=== PATIENT | male | born 1950 | race American Indian/Alaskan Native ===

== ENCOUNTER 2019-08-05 10:08 | Emergency (ER) | payer MEDICARE ==
[2019-08-05 10:40] VITALS: BP 127/71
[2019-08-05 11:28] LABS: Bilirubin,Urine NEG (Negative); Blood,Urine MOD (Negative); Color,Urine Yellow (Yellow); Urobilinogen,Urine < 2.0 mg/dL (<2.0)
[2019-08-05 11:29] LABS: RBC,Urine > 182.0 /HPF (0.0-6.0); WBC,Urine > 182.0 /HPF (0.0-6.0)
[2019-08-05] MEDS ORDERED: LIDOCAINE-MPF (1%) 10 MG/1 ML VIAL 5 ML INFILTRATI ONE (14:36)
--- NOTE | 2019-08-05 15:02 | Emergency Department Report ---
ED Male HPI - General Chief complaint: Urogenital-Male Stated complaint: BACK/LEG PAIN Time Seen by Provider: 08/05/19 13:57 Source: patient Mode of arrival: Wheelchair Limitations: No Limitations - History of Present Illness Initial comments: This is a 69-year-old male nontoxic, well nourished in appearance, no acute signs of distress presents to the ED with 2 complains: 1) dysuria and hematuria x1 day. Patient denies any penile discharge, bleeding, ulcers or lesions. Patient denies any flank pain. Patient denies any abdominal pain. 2) acute on chronic lower back pain. Patient denies any radiation of pain. Patient denies any trauma. Denies any bladder or bowel instability. Patient denies any other urinary symptoms. Denies any fever, chills, nausea, vomiting, headache, stiff neck, chest pain or shortness of breath. Patient denies any numbness or tingling. Denies any allergies. MD Complaint: dysuria, other (hematuria, lower back pain) -: days(s) Radiation: none Severity: mild Severity scale (0 -10): 3 Quality: aching, burning Consistency: intermittent Improves with: rest Worsens with: movement denies other symptoms, blood in urine, dysuria. denies: discharge, swelling, mass, rash, urinary retention, fever, nausea/vomiting, incontinence - Related Data Sexually active: No Previous Rx's Medication Instructions Recorded Last Taken Type Ciprofloxacin HCl [Ciprofloxacin 500 mg PO Q12HR #14 tab 08/05/19 Unknown Rx TAB] Cyclobenzaprine HCl [Flexeril 5 MG 5 mg PO QHS PRN #10 tab 08/05/19 Unknown Rx TAB] Allergies Allergy/AdvReac Type Severity Reaction Status Date / Time No Known Allergies Allergy Unverified 08/05/19 10:15 ED Review of Systems ROS: Stated complaint: BACK/LEG PAIN Other details as noted in HPI Constitutional: denies: chills, fever Eyes: denies: eye pain, eye discharge, vision change ENT: denies: ear pain, throat pain Respiratory: denies: cough, shortness of breath, wheezing Cardiovascular: denies: chest pain, palpitations Endocrine: no symptoms reported Gastrointestinal: denies: abdominal pain, nausea, diarrhea Genitourinary: dysuria, hematuria. denies: urgency, frequency, discharge, testicular pain, testicular mass Musculoskeletal: back pain. denies: joint swelling, arthralgia Skin: denies: rash, lesions Neurological: denies: headache, weakness, paresthesias Psychiatric: denies: anxiety, depression Hematological/Lymphatic: denies: easy bleeding, easy bruising ED Past Medical Hx - Past Medical History Previous Medical History?: Yes Hx Hypertension: Yes Hx Diabetes: Yes - Surgical History Past Surgical History?: Yes Additional Surgical History: Back surgery - Social History Smoking Status: Never Smoker Substance Use Type: None - Medications Home Medications: Home Medications Medication Instructions Recorded Confirmed Last Taken Type Ciprofloxacin HCl [Ciprofloxacin 500 mg PO Q12HR #14 tab 08/05/19 Unknown Rx TAB] Cyclobenzaprine HCl [Flexeril 5 MG 5 mg PO QHS PRN #10 tab 08/05/19 Unknown Rx TAB] ED Physical Exam - General Limitations: No Limitations General appearance: alert, in no apparent distress - Head Head exam: Present: atraumatic, normocephalic - Eye Eye exam: Present: normal appearance - Neck Neck exam: Present: normal inspection, full ROM. Absent: tenderness, meningismus, lymphadenopathy - Respiratory Respiratory exam: Present: normal lung sounds bilaterally. Absent: respiratory distress, wheezes, rales, rhonchi, stridor, chest wall tenderness, accessory muscle use, decreased breath sounds, prolonged expiratory - Cardiovascular Cardiovascular Exam: Present: regular rate, normal rhythm, normal heart sounds. Absent: bradycardia, tachycardia, irregular rhythm, systolic murmur, diastolic murmur, rubs, gallop - GI/Abdominal GI/Abdominal exam: Present: soft, normal bowel sounds. Absent: distended, tenderness, guarding, rebound, rigid, diminished bowel sounds - Rectal Rectal exam: Present: deferred - Extremities Exam Extremities exam: Present: normal inspection, full ROM, normal capillary refill. Absent: tenderness, joint swelling - Back Exam Back exam: Present: normal inspection, full ROM, paraspinal tenderness (lumbar paraspinal area). Absent: tenderness, CVA tenderness (R), CVA tenderness (L), muscle spasm, vertebral tenderness, rash noted - Expanded Back Exam Expanded Back exam: Absent: saddle anesthesia Back exam: Negative Straight Leg Raising: Left, Right - Neurological Exam Neurological exam: Present: alert, oriented X3, normal gait - Psychiatric Psychiatric exam: Present: normal affect, normal mood - Skin Skin exam: Present: warm, dry, intact, normal color. Absent: rash ED Course Vital Signs 08/05/19 10:18 Temperature 98.3 F Pulse Rate 84 Respiratory 18 Rate Blood Pressure 127/71 O2 Sat by Pulse 100 Oximetry - Reevaluation(s) Reevaluation #1: 08/05/19 15:02 Patient is speaking in full sentences with no signs of distress noted. ED Medical Decision Making - Medical Decision Making This is a 63-year-old male that presents with UTI. Patient is stable and was examined by me. UA obtained. Patient does not have any CVA tenderness. No signs or symptoms of pyelonephritis. Patient received Rocephin 1G in the ED. Patient is discharged with Cipro. There is no midline spinal tenderness. There is no cauda equina syndrome during examination. No bladder or bowel instability. Patient is discharged with muscle relaxant. Patient was instructed to Follow-up with a primary care doctor in 3-5 days or if symptoms worsen and continue return to emergency room as soon as possible. At time of discharge, the patient does not seem toxic or ill in appearance. No acute signs of distress noted. Patient agrees to discharge treatment plan of care. No further questions noted by the patient. Critical care attestation.: If time is entered above; I have spent that time in minutes in the direct care of this critically ill patient, excluding procedure time. ED Disposition Clinical Impression: UTI (urinary tract infection) Qualifiers: Urinary tract infection type: acute cystitis Hematuria presence: with hematuria Qualified Code(s): N30.01 - Acute cystitis with hematuria Chronic back pain Qualifiers: Back pain location: low back pain Back pain laterality: unspecified Sciatica presence: without sciatica Qualified Code(s): M54.5 - Low back pain; G89.29 - Other chronic pain Disposition: DC-01 TO HOME OR SELFCARE Is pt being admited?: No Does the pt Need Aspirin: No Condition: Stable Instructions: Urinary Tract Infection in Men (ED), Low Back Strain (ED), Cyclobenzaprine (By mouth) Additional Instructions: Follow-up with your primary care doctor in 3-5 days or if symptoms worsen such as bladder or bowel stability, chest pain, short of breath, numbness or tingling sensation in extremities, headache, dizziness, visual changes, nausea vomiting, or abdominal pain, return back to emergency room as was possible. Take Flexeril as prescribed. Do not operate heavy machinery while taking Flexeril due to sedation Prescriptions: Cyclobenzaprine HCl [Flexeril 5 MG TAB] 5 mg PO QHS PRN #10 tab PRN Reason: Muscle Spasm Ciprofloxacin HCl [Ciprofloxacin TAB] 500 mg PO Q12HR #14 tab Referrals: BRYON TONY MD [Primary Care Provider] - 3-5 Days ASHLEY NARAYANAN MD [Staff Physician] - 3-5 Days [facility] [Provider Group] - 3-5 Days
== END 2019-08-05 15:28 | disposition home or self-care (01) ==
LOC: ED 10:08
DX: N39.0 Urinary tract infection, site not specified (principal); G89.29 Other chronic pain; I10 Essential (primary) hypertension; E11.9 Type 2 diabetes mellitus without complications; Z98.890 Other specified postprocedural states
CPT/HCPCS: 81001; 87086; 96372; 99283; J0696

== ENCOUNTER 2019-08-12 12:21 | Emergency (ER) | payer MEDICARE ==
[2019-08-12 12:26] VITALS: BP 112/66
--- NOTE | 2019-08-12 12:57 | Emergency Department Report ---
Chief Complaint: Extremity Problem,Nontraumatic Stated Complaint: TAIL BONE PAIN - HPI History of Present Illness: 69 y/o male comes in for tailbone pain. Patient reports that he is taking his antibiotic as prescribed. Not taking any pain medication. - Exam Vital Signs: Vital Signs 08/12/19 12:21 Temperature 97.7 F Pulse Rate 71 Respiratory 16 Rate Blood Pressure 112/66 O2 Sat by Pulse 100 Oximetry Physical Exam: AxO times 3 NAD patient is very thin. MSE screening note: Focused history and physical exam performed. Due to findings the following was ordered: 69 y/o male comes in for tailbone pain. Patient reports that he is taking his antibiotic as prescribed. Not taking any pain medication. ED Disposition for MSE Clinical Impression: Chronic back pain Disposition: MED SCREENING EXAM-LEFT Is pt being admited?: No Does the pt Need Aspirin: No Condition: Stable Instructions: Chronic Back Pain (ED) Additional Instructions: Continue with antibiotic try taking Tylenol 650 mg every 8 hours. Follow up with your Primary Care Provider. Referrals: BRYON TONY MD [Primary Care Provider] - 3-5 Days ASHLEY NARAYANAN MD [Staff Physician] - 3-5 Days
== END 2019-08-12 14:00 | disposition left against medical advice (07) ==
LOC: ED 12:21
DX: M53.3 Sacrococcygeal disorders, not elsewhere classified (principal); G89.29 Other chronic pain
CPT/HCPCS: 99282